=== PATIENT | male | born 2000 | race African-American/Black ===

== ENCOUNTER 2023-02-06 23:35 | Emergency (ER) | payer OTHER ==
[~2023-02-06] VITALS: Ht 172.7 cm; Wt 65.8 kg
[2023-02-07 00:10] VITALS: BP 134/68; TEMP 98.1; O2SAT 98
== END 2023-02-07 02:36 | disposition left against medical advice (07) ==
LOC: ER 23:37
DX: M79.604 Pain in right leg (principal)
CPT/HCPCS: 73552; 73590-TC

== ENCOUNTER 2023-02-19 19:51 | Emergency (ER) | payer OTHER ==
[~2023-02-19] VITALS: Ht 177.8 cm; Wt 65.8 kg
[2023-02-19] MEDS ORDERED: KETOROLAC TROMETHAMINE INJ 30 MG/ML VIAL ONE (20:17)
[2023-02-19] MEDS ORDERED: KETOROLAC TROMETHAMINE INJ 30 MG/ML VIAL IM ONE (20:30)
[2023-02-19] MEDS ORDERED: IBUP-1953 PO (20:46)
[2023-02-19 21:12] VITALS: BP 126/70; TEMP 98.1; O2SAT 99
== END 2023-02-19 21:13 | disposition home or self-care (01) ==
LOC: ER 19:59
DX: R07.81 Pleurodynia (principal); M25.522 Pain in left elbow; Z60.2 Problems related to living alone; V43.62XA Car passenger injured in collision with other type car in traffic accident, initial encounter; Y93.89 Activity, other specified; Y92.89 Other specified places as the place of occurrence of the external cause; Y99.8 Other external cause status
CPT/HCPCS: 99284; 71046; 96372; 73080; J1885

== ENCOUNTER 2023-12-16 11:59 | Emergency (ER) | payer OTHER ==
[~2023-12-16] VITALS: Ht 175.3 cm; Wt 56.2 kg
[~2023-12-16 11:59] MED LIST: IBUP-1953 PO
[2023-12-16] MEDS: IV NS 0.9% 1,000 ML BAG IV ONE (13:28)
[2023-12-16 13:30] LABS: BASOPHILS % (AUTO) 1.2 % (0.0-2.0); EOSINOPHILS % (AUTO) 1.4 % (0.0-6.0); HEMATOCRIT 38 % (39-51); HEMOGLOBIN 12.6 g/dL (13.5-17.5); MEAN CORPUSCULAR HEMOGLOBIN 29 PG (26.0-33.0); MEAN CORPUSCULAR HGB CONC 33 g/dl (31.0-36.0); MEAN CORPUSCULAR VOLUME 87 fL (80-96); MONOCYTES # (AUTO) 0.3 K/uL (0.1-1.30); MONOCYTES % (AUTO) 13.3 % (2.0-12.0); NEUTROPHILS # (AUTO) 1.1 K/uL (1.8-8.9); NEUTROPHILS % (AUTO) 44.1 % (43.0-81.0); PLATELET COUNT (AUTO) 174 K/uL (150-450); RED BLOOD CELL COUNT(AUTO) 4.37 MIL/uL (4.5-6.0); RED CELL DISTRIBUTION WIDTH 13.6 % (11.5-15.0); WHITE BLOOD COUNT (AUTO) 2.4 K/uL (4.3-11.0)
[2023-12-16 13:39] LABS: POTASSIUM 4.1 mmol/L (3.5-5.1)
[2023-12-16 13:44] LABS: ALBUMIN 3.6 g/dL (3.4-5.0); BILIRUBIN,DIRECT 0.1 mg/dL (0.0-0.2); BILIRUBIN,TOTAL 0.3 mg/dL (0.2-1.0); TOTAL PROTEIN, SERUM 7.4 g/dL (6.4-8.2)
[2023-12-16] MEDS ORDERED: ONDANSETRON HCL/PF 4 MG/2 ML VIAL ONE (13:44)
[2023-12-16] MEDS: ONDANSETRON HCL/PF 4 MG/2 ML VIAL IVP ONE (13:46)
[2023-12-16 14:04] LABS: APPEARANCE,URINE CLEAR (CLEAR); BILIRUBIN,URINE NEGATIVE (NEGATIVE); BLOOD, URINE NEGATIVE Ery/uL (NEGATIVE); COLOR,URINE YELLOW (YELLOW); KETONES,URINE NEGATIVE (NEGATIVE); LEUKOCYTE ESTERASE ,URINE NEGATIVE (NEGATIVE); NITRITE, URINE NEGATIVE (NEGATIVE); PROTEIN,URINE TRACE mg/dl (NEGATIVE); UGLUCOSE NEGATIVE (NEGATIVE)
[2023-12-16 14:11] LABS: ADD URINE CULTURE NO; BACTERIA,URINE Rare /HPF (None Seen); RBC,URINE 0-2 /HPF (0-2); SQUAMOUS EPITHELIAL CELL,UR Few /HPF (None Seen); WBC,URINE 0-2 /HPF (0-3)
[2023-12-16 14:14] LABS: AMPHETAMINE, URINE NEGATIVE (NEGATIVE); BARBITURATE, URINE NEGATIVE (NEGATIVE); BENZODIAZEPINE, URINE NEGATIVE (NEGATIVE); COCCAINE, URINE NEGATIVE (NEGATIVE); OPIATE, URINE NEGATIVE (NEGATIVE); PHENCYCLIDINE SCREEN,URINE NEGATIVE (NEGATIVE)
[2023-12-16 14:17] LABS: CANNABINOID, URINE POSITIVE (NEGATIVE)
[2023-12-16] MEDS ORDERED: ONDA4TAB5 PO (14:18)
[2023-12-16 14:35] VITALS: BP 128/71; TEMP 98.7; O2SAT 98
== END 2023-12-16 14:35 | disposition home or self-care (01) ==
LOC: ER 12:08
DX: R63.4 Abnormal weight loss (principal); R53.83 Other fatigue; R11.0 Nausea; R10.9 Unspecified abdominal pain; D72.819 Decreased white blood cell count, unspecified; F10.10 Alcohol abuse, uncomplicated; M79.604 Pain in right leg; Z68.1 Body mass index [BMI] 19.9 or less, adult; Z60.2 Problems related to living alone; Y90.0 Blood alcohol level of less than 20 mg/100 ml
CPT/HCPCS: 99285; 96374; 93005; 71045; 74176; 85025; 80048; 83690; 80076; 81001; 36415; 80320; 80307; J2405; J7030; G0480